=== PATIENT | male | born 1955 | race Caucasian/White ===

== ENCOUNTER 2018-09-10 07:07 | Emergency (ER) | payer MEDICAID ==
[2018-09-10] MEDS ORDERED: IPRATROPIUM/ALBUTEROL (0.5MG/3MG) NEB INH ONE ×4 (07:10→09:17)
--- NOTE | 2018-09-10 07:31 | Emergency Department Record ---
History of Present Illness - General Chief Complaint: Shortness of breath Stated Complaint: LEROY Time Seen by Provider: 09/10/18 07:19 Source: Patient Mode of Arrival: Wheelchair Limitations: No limitations - History of Present Illness Initial Comments: The patient is here due to a cough, and SOB for 3-4 days. He does have a hx of COPD and Sarcoidosis and does use inhallers and Prednisone daily. He did go to an yesterday and was given an oral Abx. His breathing got worse last night so he decided to come to the ER today. He has been coughing up green phlegm at times but denies any fever. MD Complaint: Shortness of breath Onset/Timin -: Week(s) Consistency: Constant Improves With: Bronchodilators, Oxygen Worsens With: Exertion, Lying flat Known History Of: COPD, Other Context: Recent travel Treatments Prior to Arrival: Bronchodilator - Related Data Home Oxygen Therapy: No Home Medications Medication Instructions Recorded Confirmed Last Taken Alprazolam 0.25 mg PO QHS 09/10/18 09/10/18 Unknown Azithromycin 250 mg PO DAILY 09/10/18 09/10/18 Unknown Cefdinir [Omnicef] 300 mg PO BID 09/10/18 09/10/18 Unknown Fluticasone/Salmeterol 1 cap INH DAILY 09/10/18 09/10/18 Unknown [Fluticasone-Salmeterol 113-14] Prednisone [Prednisone 1Mg] 4 tab PO DAILY 09/10/18 09/10/18 Unknown Sertraline HCl [Zoloft] 25 mg PO DAILY 09/10/18 09/10/18 Unknown Allergies Allergy/AdvReac Type Severity Reaction Status Date / Time No Known Drug Allergies Allergy Unverified 11/30/16 12:59 Travel Screening - Travel/Exposure Within Last 30 Days Have you traveled within the last 30 days?: Yes Location Detail:: [place] - Travel/Exposure Within Last Year Have you traveled outside the [place] in the last year?: No - Travel Symptoms Symptom Screening: None Review of Systems Constitutional: Denies: Chills, Fever Eyes: Denies: Eye discharge ENT: Reports: Congestion Respiratory: Reports: Cough, Dyspnea. Denies: Hemoptysis Cardiovascular: Denies: Arrhythmia, Chest pain Endocrine: Denies: Fatigue Gastrointestinal: Denies: Diarrhea, Vomiting Genitourinary: Denies: Dysuria Musculoskeletal: Denies: Arthralgia Skin: Denies: Bruising Neurological: Denies: Abnormal gait Past Medical History - SOCIAL HISTORY Smoking Status: Former smoker - RESPIRATORY Hx Respiratory Disorders: Yes Hx COPD: Yes Hx Pneumonia: Yes Comment:: sarcoidosis - CARDIOVASCULAR Hx Cardio Disorders: No - NEURO Hx Neuro Disorders: No - GI Hx GI Disorders: No - Hx Genitourinary Disorders: No - ENDOCRINE Hx Endocrine Disorders: Yes Hx Thyroid Disease: Yes Comment:: hypoglycemia - denies diabetes - MUSCULOSKELETAL Hx Musculoskeletal Disorders: No - PSYCH Hx Psych Problems: Yes Hx Anxiety: Yes - HEMATOLOGY/ONCOLOGY Hx Hematology/Oncology Disorders: No Family Medical History Any Significant Family History?: Yes Hx Alcohol Use: Grandparents Hx Anxiety: Brother/Sister Hx Cancer: Mother, Grandparents Hx Depression: Brother/Sister Hx Heart Disease: Father, Brother/Sister Hx HTN: Father Physical Exam - General General Appearance: Alert, Oriented x3, Cooperative, Mild distress - Head Head exam: Atraumatic, Normocephalic, Normal inspection - Eye Eye exam: Normal appearance, PERRL, EOMI - ENT Throat exam: Normal inspection. negative: Tonsillar erythema, Tonsillar exudate - Neck Neck exam: Normal inspection, Full ROM. negative: Tenderness - Respiratory Respiratory exam: Rhonchi, Wheezes (anterior and posterior chest.). negative: Normal lung sounds bilaterally, Accessory muscle use, Respiratory distress - Cardiovascular Cardiovascular Exam: Tachycardia - GI/Abdominal GI/Abdominal exam: Soft, Normal bowel sounds. negative: Tenderness - Extremities Extremities exam: Normal inspection, Full ROM, Normal capillary refill. negative: Tenderness - Neurological Neurological exam: Alert, Normal gait. negative: Abnormal gait, Motor sensory deficit - Psychiatric Psychiatric exam: negative: Anxious Course Vital Signs 09/10/18 07:12 Pulse Rate 154 H Respiratory 22 Rate Blood Pressure 128/86 Pulse Ox 82 L - Reevaluation(s) Reevaluation #1: The patient is doing better at this time. He denies any CP but is still mildly dyspneic. He is speaking in full sentences and is presently reading a book in the room. His HR is down to the 130's and we will check a 2nd EKG. 09/10/18 08:06 Reevaluation #2: 2nd EKG; Possible Sinus tach at 130, wide complex tach with QT 578. 09/10/18 08:24 Reevaluation #3: The patient is doing better but is still having inspiratory and expiratory wheezing at times. His HR is down to the 130's and he is resting comfortably. The patient clearly will need to see a Hogshead Builder and a Chief Dog License Inspector for this illness so he will need to be transferred to a larger hospital. [place] chose [place] [facility] [place] I did discuss the case with Dr. Khan and he did accept him [place] [facility] 09/10/18 08:37 Reevaluation #4: The patient is doing OK at the time of transfer. His biox is 95% on 2 liters of oxygen and he is doing better after a 4th neb tx. He is speaking in full sentences with no pain or discomfort but is still wheezing. 09/10/18 09:29 Medical Decision Making - Data Complexity MDM Data: Labs Ordered and/or Reviewed, X-Ray Ordered and/or Reviewed, EKG Ordered and/or Reviewed - Lab Data Result diagrams: 09/10/18 07:25 09/10/18 07:25 - EKG Data -: EKG Interpreted by Me (Prob atrial flutter at 160.) - Radiology Data Radiology results: Report reviewed (CXR: Severe COPD and Sarcoidosis, no change from 11/20.) Disposition Disposition: Transfer Clinical Impression: COPD exacerbation, Tachycardia Disposition: Acute Care Hospital Transfer Transfer [place] [facility] Reason For Transfer: Cardiology Accepting Physician: Erin Time Discussed w/Accepting Physician: 08:39 Condition: (2) Stable Forms: Patient Portal Access Time of Disposition: 08:39 Quality - Quality Measures Quality Measures: N/A - Blood Pressure Screening View Details: Yes Does Patient Have Any of the Following: No Blood Pressure Classification: Pre-Hypertensive BP Reading Systolic Measurement: 128 Diastolic Measurement: 86 Screening for High Blood Pressure: < Pre-Hypertensive BP, F/U Documented > [ [id number]] Pre-Hypertensive Follow-up Interventions: Referral to alternative/primary care provider.
[2018-09-10] MEDS ORDERED: DILTIAZEM 25MG/5ML VIAL IV ONE (07:34)
[2018-09-10 07:35] LABS: BASO % 0.1 % (0-6); EOS % 0.4 % (0-6); GRAN % 79.8 % (47-80); HEMATOCRIT 48.9 % (42.0-52.0); HEMOGLOBIN 16.3 gm/dl (14.0-18.0); LYMPH % 6.4 % (16-45); MEAN CELL VOLUME 87.8 fl (81-97); MEAN CORPUSCULAR HEMOGLOBIN 29.3 pg (27-33); MEAN CORPUSCULAR HGB CONC 33.3 g/dl (32-36); MEAN PLATELET VOLUME 9.1 fl (7.4-10.4); MONO % 13.3 % (0-9); PLATELET COUNT 282 K/uL (130-400); RED BLOOD COUNT 5.57 M/uL (4.40-5.70); RED CELL DISTRIBUTION WIDTH 13.5 % (11.5-14.5); WHITE BLOOD COUNT W/O DIFF 6.8 K/uL (4.2-12.2)
[2018-09-10 07:44] LABS: PARTIAL THROMBOPLASTIN TIME 28.7 SECONDS (24.5-39.1); PROTHROMBIN TIME (PATIENT) 10.5 SECONDS (9.5-12.1)
[2018-09-10] MEDS ORDERED: DILTIAZEM HCL 125 MG in 0.9 % SODIUM CHLORIDE 100ML 100 ML IV SCH (07:45)
[2018-09-10 07:46] LABS: BLOOD UREA NITROGEN 15 mg/dL (8-23); CREATININE 0.9 mg/dL (0.7-1.2); EST GLOMERULAR FILTRATION RATE > 60 mL/min
[2018-09-10 07:49] LABS: GLUCOSE,RANDOM 125 mg/dL (74-109)
[2018-09-10 07:52] LABS: ALB/GLOB RATIO 1.5 (1.1-1.8); ALBUMIN 4.8 g/dL (4.0-5.0); ALKALINE PHOSPHATASE 83 U/L (40-129); ALT/SGPT 16 U/L (<41); AST/SGOT 18 U/L (10.0-50.0); CREATINE PHOSPHOKINASE 65 U/L (39-308)
[2018-09-10] MEDS ORDERED: METHYLPREDNISOLONE PF 125MG/VIAL IVP ONE (07:53)
[2018-09-10 07:55] LABS: CKMB 4.7 ng/mL (<6.73)
[2018-09-10 08:02] LABS: THYROID STIMULATING HORMONE 2.69 uIU/mL (0.270-4.20)
[2018-09-10] MEDS ORDERED: CEFTRIAXONE SODIUM 1 GM in 0.9 % SODIUM CHLORIDE 100ML 100 ML IVPB ONE (08:18)
--- NOTE | 2018-09-12 10:08 | RADIOLOGY REPORT ---
EXAM: CHEST, SINGLE VIEW HISTORY: DIFFICULTY IN BREATHING, COUGHING UP PHLEGM. TECHNIQUE: AP upright portable view of the chest was obtained. Comparison: Two view chest 11/30/16. FINDINGS: Extensive infiltrate bilaterally again seen appearing essentially unchanged from the prior study consistent with extensive chronic fibrosis. When comparison is made with the prior study, no definite new infiltrate is seen , however, there does appear to be slightly greater blunting of both costophrenic angles which may represent small new bibasilar effusions. The heart size is stable. IMPRESSION: 1. GREATER BLUNTING OF BOTH COSTOPHRENIC ANGLES SINCE THE PRIOR STUDY LIKELY REPRESENTING NEW BIBASILAR EFFUSIONS. 2. EXTENSIVE PARENCHYMAL DISEASE BILATERALLY APPEARING ESSENTIALLY UNCHANGED. JOB NUMBER: [id number] MTDD
== END 2018-09-10 09:41 | disposition short-term general hospital (02) ==
LOC: ER 07:07
DX: J44.1 Chronic obstructive pulmonary disease with (acute) exacerbation (principal); R00.0 Tachycardia, unspecified; R06.00 Dyspnea, unspecified; Z87.891 Personal history of nicotine dependence
CPT/HCPCS: 71045; 80053; 82550; 82553; 83880; 84443; 84484; 85025; 85610; 85730; 93005; 93010; 94640; 96365; 96366; 96375; 99285; J2930